=== PATIENT | female | born 1945 | race Caucasian/White ===

== ENCOUNTER 2017-02-05 23:15 | Emergency (ER) | payer MEDICARE, BC ==
[2017-02-06] MEDS ORDERED: HYDROCODONE/ACETAMINOPHEN 5-325 MG TABLET PO ONE (02:44)
[2017-02-06] MEDS ORDERED: ONDANSETRON 4 MG TAB.RAPDIS PO ONE (02:44)
[2017-02-06] MEDS ORDERED: MORPHINE SULFATE 10 MG/ML INJ IV ONE (02:52)
[2017-02-06] MEDS ORDERED: ONDANSETRON HCL INJ/PF 4 MG/2 ML SDV IV ONE (02:52)
--- NOTE | 2017-02-06 02:52 | ER Document Report ---
HPI - HPI Pain Level: 4 Past Medical History Renal/ Medical History: Denies: Hx Peritoneal Dialysis Vertical Provider Document - RESPIRATORY O2 Sat by Pulse Oximetry: 98 Course - Vital Signs Vital signs: Temp Pulse Resp BP Pulse Ox 98.5 F 81 16 151/83 H 98 02/05/17 23:24 02/05/17 23:24 02/05/17 23:24 02/05/17 23:24 02/05/17 23:24 Discharge - Discharge Clinical Impression: Dislocation of joint Trimalleolar fracture Qualifiers: Encounter type: initial encounter Fracture type: closed Laterality: right Qualified Code(s): S82.851A - Displaced trimalleolar fracture of right lower leg , initial encounter for closed fracture
[2017-02-06] MEDS ORDERED: NORMAL SALINE 1000 ML 1,000 ML IV ONE (02:53)
--- NOTE | 2017-02-06 02:55 | RADIOLOGY REPORT (SQ) ---
EXAM DESCRIPTION: ANKLE RIGHT COMPLETE COMPLETED DATE/TIME: 02/06/2017 2:16 am REASON FOR STUDY: right ankle injury . Fall inversion. Bilateral malleoli pain. COMPARISON: None. NUMBER OF VIEWS: Three views. TECHNIQUE: AP, lateral, and oblique radiographic images acquired of the right ankle. LIMITATIONS: None. FINDINGS: MINERALIZATION: Normal. BONES: There is a displaced fracture at the medial malleolus. There is a displaced fracture at the d istal fibula. There is a mildly displaced fracture at the posterior malleolus. There is anterior an d medial dislocation at the tibiotalar joint. JOINTS: Small effusion at the ankle. SOFT TISSUES: Soft tissue swelling at the ankle. IMPRESSION: Trimalleolar right ankle fracture - dislocation with overlying soft tissue swelling and small joint effusion. TECHNICAL DOCUMENTATION: JOB ID: [id number] 2010 [employer]- All Rights Reserved
--- NOTE | 2017-02-06 02:55 | ER Document Report ---
ED Extremity Problem, Lower <MARIAJOSE BILLINGS - Last Filed: 02/06/17 05:24> - General Mode of Arrival: Medic Information source: Patient <AMANDA BARON - Last Filed: 02/06/17 19:35> - General Chief Complaint: Ankle Injury Stated Complaint: RIGHT ANKLE PAIN Time Seen by Provider: 02/06/17 02:19 Notes: 71-year-old female fell on stairs at [facility] twisting and injuring her right ankle this evening. No previous fracture. They are visiting from [place] this week. (AMANDA BARON) - Related Data Allergies/Adverse Reactions: Penicillins Allergy (Verified 02/05/17 23:25) Sulfa (Sulfonamide Antibiotics) Allergy (Verified 02/05/17 23:25) Past Medical History - General Information source: Patient - Social History Smoking Status: Never Smoker Frequency of alcohol use: None Drug Abuse: None Lives with: Spouse/Significant other Family History: Reviewed & Not Pertinent - Medical History Medical History: Negative Renal/ Medical History: Denies: Hx Peritoneal Dialysis Surgical Hx: Negative <AMANDA BARON - Last Filed: 02/06/17 19:35> Review of Systems - Review of Systems Constitutional: No symptoms reported EENT: No symptoms reported Cardiovascular: No symptoms reported Respiratory: No symptoms reported Gastrointestinal: No symptoms reported Genitourinary: No symptoms reported Female Genitourinary: No symptoms reported Musculoskeletal: See HPI Skin: No symptoms reported Hematologic/Lymphatic: No symptoms reported Neurological/Psychological: No symptoms reported <AMANDA BARON - Last Filed: 02/06/17 19:35> Physical Exam - Vital signs Interpretation: Normal - General General appearance: Appears well, Alert In distress: None - HEENT Head: Normocephalic, Atraumatic Eyes: Normal Pupils: PERRL - Respiratory Respiratory status: No respiratory distress Chest status: Nontender Breath sounds: Normal Chest palpation: Normal - Cardiovascular Rhythm: Regular Heart sounds: Normal auscultation Murmur: No - Back Back: Normal, Nontender - Extremities General upper extremity: Normal inspection, Nontender, Normal color, Normal ROM , Normal temperature General lower extremity: Normal inspection, Nontender, Normal color, Normal ROM , Normal temperature, Normal weight bearing. No: Brisa's sign Ankle: Tender - sensation intact, 2 + DP, Ecchymosis - medial and lateral malleolus, suspect talar dislocation, Edema, Instability, Limited ROM, Unable to bear weight, Other - left ankle with soft tissue bruise and tenderness inferiot to lateral malleolus. No pricila tenderness - Neurological Neuro grossly intact: Yes Cognition: Normal Orientation: AAOx4 Nicholas Coma Scale Eye Opening: Spontaneous Nicholas Coma Scale Verbal: Oriented Nicholas Coma Scale Motor: Obeys Commands Nicholas Coma Scale Total: 15 Speech: Normal Motor strength normal: LUE, RUE, LLE, RLE Sensory: Normal - Psychological Associated symptoms: Normal affect, Normal mood - Skin Skin Temperature: Warm Skin Moisture: Dry Skin Color: Normal <AMANDA BARON - Last Filed: 02/06/17 19:35> - Vital signs Vitals: Temp Pulse Resp BP Pulse Ox 98.5 F 81 16 151/83 H 98 02/05/17 23:24 02/05/17 23:24 02/05/17 23:24 02/05/17 23:24 02/05/17 23:24 Course <MARIAJOSE BILLINGS - Last Filed: 02/06/17 05:24> <AMANDA BARON - Last Filed: 02/06/17 19:35> - Re-evaluation Re-evalutation: 02/06/17 02:45 This is a tri-malleolar and dislocation the right ankle. Consult Dr. Titus who states that she needs to be transferred and place in posterior splint/ sugar tong. 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 02/06/17 03:27 dr. muro states that it does not need to be transferred to [facility], only needs reduction and splinting and he is requesting to speak with dr. titus. Dr titus now agrees to reduce and splint after speaking with dr muro. 02/06/17 03:29 I explained this to the pt. 02/06/17 03:54 dr. Mariajose Billings is willing to reduce since dr. titus has to see another critical pt. 02/06/17 05:49 pt awake, left ankle and foot xray are negative. dr. billings reduced, post reduction films look much better. (AMANDA BARON) - Vital Signs Vital signs: Temp Pulse Resp BP Pulse Ox 98.5 F 77 11 L 124/76 99 02/05/17 23:24 02/06/17 05:35 02/06/17 05:56 02/06/17 05:56 02/06/17 05:56 Procedures - Conscious Sedation Conscious sedation Consent obtained: Yes Indication: R ankle fracture/dislocation Pt with a mild systemic disease.: P2. - ASA Classification. Mallampati Classification: Class 2 Used during procedure: Suction available, IV access obtained, Pulse ox on pt., telemetry monitor on pt. Medications administered: Versed, Fentanyl I personally performed/intraservice time: Sedation, Procedure, 30 min or less Complications: No - Joint Reduction/Fracture Care Right Ankle Consent obtained: Yes Conscious sedation: Yes Pre-procedure NV exam: Yes Fracture: Closed Manipulation comment: reduction complete by holding the great toe, manual traction Post-procedure NV exam: Yes Post-reduction x-ray: Joint reduced Reduction attempts: 1 Complications: No <MARIAJOSE BILLINGS - Last Filed: 02/06/17 05:24> - Immobilization Left Ankle Pre-Proc Neuro Vasc Exam: Normal Immobilizer type: Dario wrap Performed by: PCT Post-Proc Neuro Vasc Exam: Normal Alignment checked and good: Yes Right Ankle Pre-Proc Neuro Vasc Exam: Normal Immobilizer type: Ankle stirrup - with splinting material, dario wrap, Posterior ankle Performed by: PCT Post-Proc Neuro Vasc Exam: Normal Alignment checked and good: Yes <AMANDA BARON - Last Filed: 02/06/17 19:35> - Conscious Sedation Conscious sedation Notes: dr Billings and nurse in room for the conscious sedation. (AMANDA BARON) Discharge <MARIAJOSE BILLINGS - Last Filed: 02/06/17 05:24> <AMANDA BARON - Last Filed: 02/06/17 19:35> - Discharge Clinical Impression: Dislocation, reduction of right ankle Trimalleolar fracture Qualifiers: Encounter type: initial encounter Fracture type: closed Laterality: right Qualified Code(s): S82.851A - Displaced trimalleolar fracture of right lower leg , initial encounter for closed fracture Left ankle sprain Qualifiers: Encounter type: initial encounter Involved ligament of ankle: unspecified ligament Qualified Code(s): S93.402A - Sprain of unspecified ligament of left ankle, initial encounter Condition: Good Disposition: HOME, SELF-CARE Instructions: Dario Wrap ([facility]), Splint Precautions ([facility]), Oral Narcotic Medication ([facility]), Use of Crutches ([facility]) Additional Instructions: 1. call tuesday for appointment with orthopedics tuesday number given 2, elevate and non ambulatory right leg 3. to er any concerns 4. use the walker, crutches given also 5. dario wrap to left ankle sprain Prescriptions: Hydrocodone Bit/Acetaminophen [Hydrocodon-Acetaminophen 5-325] 1 - 2 each PO Q4HP PRN #30 tablet PRN Reason: Walker [Folding Walker] 1 each MC ASDIR PRN #1 each PRN Reason: Wheelchair 1 each MC DAILY #1 each Referrals: ARASELI TRAVIS MD [ACTIVE STAFF] - 02/07/17
[2017-02-06] MEDS ORDERED: FENTANYL CITRATE INJ/PF 100 MCG/2 ML AMPUL IV ONE ×2 (03:58→04:16)
[2017-02-06] MEDS ORDERED: MIDAZOLAM 2 MG/2 ML INJ IV ONE ×2 (03:59→05:46)
[2017-02-06] MEDS ORDERED: FENTANYL CITRATE INJ/PF 100 MCG/2 ML AMPUL ONE (04:40)
[2017-02-06] MEDS ORDERED: HYDROCODONE/ACETAMINOPHEN 5-325 MG 6 TAB/DSPK PO PRN (05:40)
--- NOTE | 2017-02-06 05:54 | RADIOLOGY REPORT (SQ) ---
EXAM DESCRIPTION: FOOT LEFT COMPLETE COMPLETED DATE/TIME: 02/06/2017 5:36 am REASON FOR STUDY: injury, portable COMPARISON: Left ankle 02/06/2017 NUMBER OF VIEWS: Three views. TECHNIQUE: AP, lateral and oblique radiographic images acquired of the left foot. LIMITATIONS: None. FINDINGS: MINERALIZATION: Normal. BONES: No acute fracture or dislocation. Degenerative changes at the 1st metatarsophalangeal joint w ith hallux valgus deformity and overlying soft tissue swelling. SOFT TISSUES: No radiopaque foreign body. IMPRESSION: No radiographic evidence of acute fracture. Degenerative changes at the 1st MTP joint w ith hallux valgus deformity and overlying soft tissue swelling. TECHNICAL DOCUMENTATION: JOB ID: [id number] 2010 [employer]- All Rights Reserved
--- NOTE | 2017-02-06 05:57 | RADIOLOGY REPORT (SQ) ---
EXAM DESCRIPTION: ANKLE LEFT COMPLETE COMPLETED DATE/TIME: 02/06/2017 5:36 am REASON FOR STUDY: injury, portable COMPARISON: Left foot x-ray 02/06/2017. NUMBER OF VIEWS: Three views. TECHNIQUE: AP, lateral, and oblique radiographic images acquired of the left ankle. LIMITATIONS: None. FINDINGS: MINERALIZATION: Normal. BONES: No acute fracture or dislocation. The ankle mortise is maintained. JOINTS: 4 mm round calcification is seen at the ankle joint, adjacent to the medial malleolus, on the AP view. SOFT TISSUES: Mild diffuse soft tissue swelling. No radiopaque foreign body. IMPRESSION: No radiographic evidence of acute fracture. Mild diffuse soft tissue swelling. Small r ound calcification at the left ankle joint, may represent a loose body, evaluation with MRI as clinic ally warranted. TECHNICAL DOCUMENTATION: JOB ID: [id number] 2010 [employer]- All Rights Reserved
[2017-02-06 06:00] VITALS: BP 124/76
--- NOTE | 2017-02-06 06:03 | RADIOLOGY REPORT (SQ) ---
EXAM DESCRIPTION: ANKLE RIGHT COMPLETE COMPLETED DATE/TIME: 02/06/2017 5:36 am REASON FOR STUDY: post reduction COMPARISON: Right ankle x-ray 02/06/2017 at 0210 hours NUMBER OF VIEWS: Three views. TECHNIQUE: AP, lateral, and oblique radiographic images acquired of the right ankle obtained on 2016 at 0518 hours. LIMITATIONS: Overlying cast is partially obscuring bony detail. FINDINGS: MINERALIZATION: Normal. BONES: Interval closed reduction with placement of radiopaque casting, partially obscuring bony detai l. Mild interval decrease in the dislocation of the fracture of the medial malleolus. No significan t interval change in the displaced fracture of the distal fibula. Mild interval increase in the disl ocation of the fracture at posterior malleolus. Persistent anterior tibiotalar dislocation. SOFT TISSUES: Diffuse soft tissue swelling. IMPRESSION: Trimalleolar right ankle fracture-dislocation status post interval closed reduction and cast placement, as described above. TECHNICAL DOCUMENTATION: JOB ID: [id number] 2010 [employer]- All Rights Reserved
== END 2017-02-06 06:30 | disposition home or self-care (01) ==
LOC: ER 23:15
PROC: 0SSFXZZ Reposition Right Ankle Joint, External Approach (ICD-10-PCS; principal; 2017-02-05)
DX: S82.851A Displaced trimalleolar fracture of right lower leg, initial encounter for closed fracture (principal); S93.402A Sprain of unspecified ligament of left ankle, initial encounter; W10.9XXA Fall (on) (from) unspecified stairs and steps, initial encounter; Y92.832 Beach as the place of occurrence of the external cause; Z88.0 Allergy status to penicillin; Z88.2 Allergy status to sulfonamides
CPT/HCPCS: 99283; 99153; 99152; 96374; 96375; 73610 ×2; 73630; 27840; J2250; A9270 ×2; J3010; J2270; J2405; J7030; S0119

== ENCOUNTER 2017-02-09 07:06 | Day surgery (SDC) | payer MEDICARE, BC ==
[~2017-02-09 07:06] MED LIST: CLINDAMYCIN 600 MG/D5W RTU 600 MG/50 ML RTUPB IV PRN
[2017-02-09 08:01] LABS: APPEARANCE,URINE CLOUDY; BILIRUBIN,URINE NEGATIVE (NEGATIVE); CALCIUM OXALATE CRYSTALS,URINE MODERATE /HPF; GLUCOSE, URINE NEGATIVE (NEGATIVE); KETONES,URINE NEGATIVE (NEGATIVE); LEUKOCYTE ESTERASE,URINE NEGATIVE (NEGATIVE); NITRITE,URINE NEGATIVE (NEGATIVE); PROTEIN,URINE NEGATIVE (NEGATIVE); URINE SPECIFIC GRAVITY 1.027; UROBILINOGEN,URINE NEGATIVE mg/dL (<2.0)
[2017-02-09 08:11] LABS: HEMATOCRIT 35.2 % (36.0-47.0); HEMOGLOBIN 11.8 g/dL (12.0-15.5); HGB HCT DIFFERENCE 0.2; MEAN CORPUSCULAR HGB CONC 33.5 g/dL (32.0-36.0); MEAN CORPUSCULAR VOLUME 89 fl (80-97); RED BLOOD COUNT 3.93 10^6/uL (3.72-5.28); RED CELL DISTRIBUTION WIDTH 13.9 % (11.5-14.0); WHITE BLOOD COUNT 6.2 10^3/uL (4.0-10.5)
[2017-02-09 08:29] LABS: ANION GAP 9 (5-19); BLOOD UREA NITROGEN 16 mg/dL (7-20); CALCIUM 9.6 mg/dL (8.4-10.2); CARBON DIOXIDE 26 mmol/L (22-30); CHLORIDE 106 mmol/L (98-107); CREATININE RESULT 0.67 mg/dL (0.52-1.25); GLUCOSE 102 mg/dL (75-110); SODIUM 141.4 mmol/L (137-145)
--- NOTE | 2017-02-09 09:14 | EKG REPORT ---
SEVERITY:- NORMAL ECG - SINUS RHYTHM : Confirmed by: Brigitte Barajas MD 09-Feb-2017 09:13:39
[2017-02-09] MEDS ORDERED: FENTANYL CITRATE INJ/PF 100 MCG/2 ML AMPUL ONE ×3 (09:39→11:12)
[2017-02-09] MEDS ORDERED: ACETAMINOPHEN 100 ML IV ONE (09:40)
[2017-02-09] MEDS ORDERED: MIDAZOLAM 2 MG/2 ML INJ ONE (09:40)
[2017-02-09] MEDS ORDERED: PROPOFOL INJ 200 MG/20 ML VIAL IV ONE (09:40)
[2017-02-09] MEDS ORDERED: MORPHINE SULFATE 10 MG/ML INJ ONE (09:51)
[2017-02-09] MEDS ORDERED: IBUPROFEN INJ 800 MG/8 ML VIAL IV ONE (09:51)
[2017-02-09] MEDS ORDERED: OXYCODONE-ACETAMINOPHEN 5-325 MG TABLET PO PRN ×2 (10:22)
[2017-02-09] MEDS ORDERED: PROMETHAZINE HCL INJ 25 MG/1 ML VIAL IV PRN ×2 (10:22)
[2017-02-09] MEDS ORDERED: DIPHENHYDRAMINE HCL 50 MG/ML VIAL IV PRN (10:22)
[2017-02-09] MEDS ORDERED: MORPHINE SULFATE 10 MG/ML INJ IV PRN (10:22)
[2017-02-09] MEDS ORDERED: MEPERIDINE HCL/PF INJ 25 MG/1 ML DISP.SYRIN IV PRN (10:22)
[2017-02-09] MEDS ORDERED: FENTANYL CITRATE INJ/PF 100 MCG/2 ML AMPUL IV PRN ×3 (10:22)
--- NOTE | 2017-02-09 10:48 | Operative Report ---
Operative Report DATE OF SURGERY: 02/09/17 PREOPERATIVE DIAGNOSIS: Right bimalleolar ankle fracture OPERATION: Open reduction internal fixation right bimalleolar ankle fracture SURGEON: ARASELI TRAVIS ANESTHESIA: GA ESTIMATED BLOOD LOSS: 50 PROCEDURE: With the patient supine on the operating table the right lower extremities prepped and draped in a sterile fashion. The limb was elevated for exsanguination tourniquet inflated 280 torr. A longitudinal incision was made over the distal fibula and sharp dissection was carried incision down through the subcu periosteum. The periosteum is elevated. The underlying fractures identified. It is reduced under direct visualization using lobster-claw clamp. Subsequently an 8 hole one third tubular stainless steel Superior plate is fashioned into a hook plate and applied to the lateral border of the fibula. Secured with 4 screws proximally and 3 screws distally. The fracture reduction and the hardware placement is judged fluoroscopically felt to be adequate. Attention was next turned to the medial aspect of the ankle. A longitudinal incision was made over the medial malleolus. The fracture is identified. Its reduced under direct visualization and held in place with 2 pins for 4 oh cannulated screw system. The reduction and pin placement judged fluoroscopically and felt to be adequate. 2250 mm 4 oh screws were advanced over the pins. The pins are removed. The entire construct was reviewed fluoroscopically for both fracture reduction and hardware placement felt to be adequate. The tourniquet was deflated. Hemostasis obtained with electrocautery. Wounds are irrigated. Wounds are closed with interrupted Vicryl followed by nylon. A sterile compressive dressing CAM Walker subsequently applied and patient was discharged to PACU in satisfactory shape.
[2017-02-09] MEDS ORDERED: OXYCODONE HCL IR 5 MG TABLET PO PRN (10:55)
[2017-02-09] MEDS ORDERED: ONDANSETRON HCL INJ/PF 4 MG/2 ML SDV IV PRN (10:55)
--- NOTE | 2017-02-09 11:16 | RADIOLOGY REPORT (SQ) ---
EXAM DESCRIPTION: ANKLE RIGHT AP/LATERAL COMPLETED DATE/TIME: 02/09/2017 10:57 am REASON FOR STUDY: ORIF RT ANKLE ASSISTED WITH FLUORO IN OR S82.851A DISPLACED TRIMALLEOLAR FRACTURE OF RIGHT LOWER LEG, COMPARISON: None. FLUOROSCOPY TIME: 0.1 minute 2 images saved to PACS. TECHNIQUE: Intra-operative images acquired during surgical procedure to evaluate progress. NUMBER OF IMAGES: 2 LIMITATIONS: None. FINDINGS: Fluoroscopy was provided for intraoperative procedure. Please refer to the operative repo rt for further discussion. Total fluoroscopy time was 0.1 minutes. IMPRESSION: IMAGE(S) OBTAINED DURING PROCEDURE. COMMENT: Quality ID [id number]: Final reports for procedures using fluoroscopy that document radiation exp osure indices, or exposure time and number of fluorographic images (if radiation exposure indices are not available) Please consult full operative report of the attending physician for description of the procedure. TECHNICAL DOCUMENTATION: JOB ID: [id number] [employer]- All Rights Reserved
--- NOTE | 2017-02-09 11:17 | RADIOLOGY REPORT (SQ) ---
EXAM DESCRIPTION: NO CHG FLUORO COMPLETE DATE/TIME: 02/09/2017 10:57 am REASON FOR STUDY: ORIF RT ANKLE ASSISTED WITH FLUORO IN OR S82.851A DISPLACED TRIMALLEOLAR FRACTURE OF RIGHT LOWER LEG, FINDINGS: Please see combined report for performance of procedure and radiologic supervision and int erpretation. IMPRESSION: Please see combined report for performance of procedure and radiologic supervision and i nterpretation.
--- NOTE | 2017-02-09 12:38 | RADIOLOGY REPORT (SQ) ---
EXAM DESCRIPTION: CHEST SINGLE VIEW COMPLETED DATE/TIME: 02/09/2017 7:52 am REASON FOR STUDY: Pre-Op ASU 8 COMPARISON: None. EXAM PARAMETERS: NUMBER OF VIEWS: One view. TECHNIQUE: Single frontal radiographic view of the chest acquired. RADIATION DOSE: NA LIMITATIONS: None. FINDINGS: LUNGS AND PLEURA: No opacities, masses or pneumothorax. No pleural effusion. MEDIASTINUM AND HILAR STRUCTURES: No masses. Contour normal. HEART AND VASCULAR STRUCTURES: Heart normal in size. Normal vasculature. BONES: No acute findings. HARDWARE: None in the chest. OTHER: No other significant finding. IMPRESSION: NO ACUTE RADIOGRAPHIC FINDING IN THE CHEST. TECHNICAL DOCUMENTATION: JOB ID: [id number]
[2017-02-09] MEDS ORDERED: LIDOCAINE 2% INJ-PF (20 MG/ML) 10 ML AMPUL ONE (12:48)
[2017-02-09] MEDS ORDERED: ONDANSETRON HCL INJ/PF 4 MG/2 ML SDV ONE (12:48)
[2017-02-09] MEDS ORDERED: PHENYLEPHRINE HCL INJ/PF 10 MG/1 ML SDV ONE (12:48)
[2017-02-09] MEDS ORDERED: DEXAMETHASONE SOD PHOSPHATE INJ 4 MG/1 ML VIAL ONE (12:48)
[2017-02-09 13:32] VITALS: BP 113/65
== END 2017-02-09 13:20 | disposition home or self-care (01) ==
LOC: OROUT 07:06
PROVIDERS: ATTEND Orthopaedic Surgery
PROC: 0QSJ04Z Reposition Right Fibula with Internal Fixation Device, Open Approach (ICD-10-PCS; 2017-02-09)
PROC: 0QSH04Z Reposition Left Tibia with Internal Fixation Device, Open Approach (ICD-10-PCS; principal; 2017-02-09 09:30)
DX: S82.841A Displaced bimalleolar fracture of right lower leg, initial encounter for closed fracture (principal); W10.9XXA Fall (on) (from) unspecified stairs and steps, initial encounter; Y92.832 Beach as the place of occurrence of the external cause; E03.9 Hypothyroidism, unspecified; K21.9 Gastro-esophageal reflux disease without esophagitis; Z88.0 Allergy status to penicillin; I25.2 Old myocardial infarction; Z88.2 Allergy status to sulfonamides; Z79.899 Other long term (current) drug therapy
CPT/HCPCS: 36415; 85027; 80048; 81001; 73600; 71010; 93005; 93010; 27814; C1713; C1769; J2250; J1100; J3010; J2270; J2370; J2405; J2704; J3490; A9270; J0131; J1741; 01480